=== PATIENT | female | born 1975 | race Caucasian/White ===

== ENCOUNTER → 2020-11-26 | Outpatient (CLI) | payer OTHER ==
[2020-11-26 13:22] LABS: BASOPHILS % (AUTO) 0.7 % (0.0-5.0); EOSINOPHILS % (AUTO) 0.4 % (0.0-8.0); HEMATOCRIT 35.8 % (36-48); LYMPHOCYTES % (AUTO) 16.9 % (21.0-51.0); MEAN CORPUSCULAR HEMOGLOBIN 28.7 pg (27.0-33.0); MEAN CORPUSCULAR HGB CONC 31.6 g/dL (32.0-36.0); MEAN CORPUSCULAR VOLUME 90.9 fL (79-99); MONOCYTES % (AUTO) 4.8 % (3.0-13.0); NEUTROPHILS % (AUTO) 77.1 % (40.0-77.0); PLATELET COUNT (AUTO) 314 K/uL (130-400); RED BLOOD CELL COUNT(AUTO) 3.94 MIL/uL (4.00-5.50); RED CELL DISTRIBUTION WIDTH 14.7 % (11.0-15.5); WHITE BLOOD COUNT (AUTO) 7.1 K/uL (4.8-10.8)
[2020-11-26 13:29] LABS: HEMOGLOBIN A1C 5.4 % (4.0-6.0)
[2020-11-26 14:04] LABS: ALANINE AMINOTRANSFERASE 23 U/L (12-78); ASPARTATE AMINOTRANSFERASE 25 U/L (10-37); BILIRUBIN,TOTAL 0.9 mg/dL (0.2-1.0); CARBON DIOXIDE 23 mmol/L (21-32); CHLORIDE 106 mmol/L (101-111); CHOLESTEROL 270 mg/dL (<200); CREATININE 0.9 mg/dL (0.5-1.5); GLOMERULAR FILTR. RATE CALC 71 mL/min (>60); GLUCOSE,RANDOM 88 mg/dL (70-105); HDL CHOLESTEROL 35 mg/dL (35-85); LDL DIRECT 196 mg/dL (0-99); POTASSIUM 3.8 mmol/L (3.5-5.1); SODIUM SERUM 138 mmol/L (136-145); TRIGLYCERIDES 152 mg/dL (30-200); UREA NITROGEN, BLOOD 13 mg/dL (7-18)
[2020-11-26 14:07] LABS: AMMONIA < 3 umol/L (11-32)
== END | disposition home or self-care (01) ==
LOC: RAH 11:02
PROVIDERS: ATTEND Family Medicine
DX: Z12.31 Encounter for screening mammogram for malignant neoplasm of breast (principal); M25.531 Pain in right wrist; E55.9 Vitamin D deficiency, unspecified; R74.8 Abnormal levels of other serum enzymes; I25.2 Old myocardial infarction; F10.10 Alcohol abuse, uncomplicated
CPT/HCPCS: 36415; 73110; 77067; 80053; 80061; 82140; 82306; 82607; 82746; 83036; 84207; 84425; 84439; 84481; 85025